=== PATIENT | female | born 1985 | race Caucasian/White ===

== ENCOUNTER 2016-10-27 11:40 | Emergency (ER) | payer OTHER ==
[~2016-10-27] VITALS: Ht 180.3 cm; Wt 98.0 kg
[2016-10-27 12:22] LABS: HEMATOCRIT 41.6 % (37.0-47.0); HEMOGLOBIN 14.3 g/dl (12.0-16.0); IMMATURE GRANULOCYTES 0.2 % (0.0-1.0); MEAN CELL VOLUME 89.3 fL CALC (80.0-100.0); MEAN CORPUSCULAR HGB 30.7 pG CALC (26.0-32.0); MEAN CORPUSCULAR HGB CONC 34.4 g/L CALC (32.0-36.0); NEUT# 4.14 thou/uL (2.00-7.15); RED BLOOD COUNT 4.66 mill/uL (4.20-5.60); RED CELL DISTRI WIDTH 12.2 % (11.5-15.5); URINE BILIRUBIN - DIPSTICK NEGATIVE (NEGATIVE); URINE BLOOD DIPSTICK MODERATE (NEGATIVE); URINE CLARITY CLEAR; URINE COLOR YELLOW; URINE GLUCOSE - DIPSTICK NEGATIVE (NEGATIVE); URINE KETONE NEGATIVE (NEGATIVE); URINE LEUK ESTERASE NEGATIVE (NEGATIVE); URINE NITRITE - DIPSTICK NEGATIVE (Negative); URINE PROTEIN - DIPSTICK NEGATIVE (NEG-TRACE); URINE UROBILINOGEN - DIPSTICK 0.2 E.U./dL (0.2)
[2016-10-27 12:26] LABS: URINE SQUAMOUS EPITHELIAL CELL FEW EPI/hpf (0-FEW)
[2016-10-27 12:28] LABS: BARBITURATES NEGATIVE (NEGATIVE); COCAINE NEGATIVE (NEGATIVE); METHADONE NEGATIVE (NEGATIVE); OXCYCODONE POSITIVE (NEGATIVE); TETRAHYDROCANNABIONOL POSITIVE (NEGATIVE); TRICYLIC ANTIDEPRESSANTS NEGATIVE (NEGATIVE)
[2016-10-27 12:35] LABS: ALBUMIN 4.6 g/dL (3.2-5.0); ALKALINE PHOSPHATASE 60 u/l (38-126); ANION GAP 15 (6-22 (CALC)); BILIRUBIN, TOTAL 0.5 mg/dL (0.0-1.4); BUN 8 mg/dL (7-17); BUN/CREATININE RATIO 12 (12-20 (CALC)); CALCIUM 9.4 mg/dL (8.4-10.2); CARBON DIOXIDE 25 mmol/l (22-30); CHLORIDE 106 mmol/l (95-108); CREATININE 0.6 mg/dL (0.5-1.0); GFR > 60 ML/MIN (>=60 (CALC)); GFR FOR AFR.AMER. > 60 ML/MIN (>=60 (CALC)); GLUCOSE 95 mg/dL (65-105); POTASSIUM 4.2 mmol/l (3.5-5.1); SGOT/AST 41 u/l (14-36); SGPT/ALT 51 u/l (9-52); SODIUM 141 mmol/l (137-146); TOTAL PROTEIN 8.1 g/dL (6.3-8.2)
[2016-10-27] MEDS ORDERED: TRAMADOL HCL50 MG PO (12:42)
[2016-10-27] MEDS ORDERED: PERCOCET 5/325M1 TAB PO (12:43)
[2016-10-27 12:47] LABS: MYOGLOBIN 24 ng/mL (0 - 62)
[2016-10-27 15:12] VITALS: BP 119/79
== END 2016-10-27 15:37 | disposition home or self-care (01) | DRG 103 ==
LOC: ED 11:40
PROVIDERS: Emergency Medicine
DX: G43.909 Migraine, unspecified, not intractable, without status migrainosus (principal); M25.512 Pain in left shoulder
CPT/HCPCS: J2060

== ENCOUNTER 2017-05-12 14:31 | Emergency (ER) | payer SELFPAY ==
[~2017-05-12] VITALS: Ht 180.3 cm; Wt 98.6 kg
[~2017-05-12 14:31] MED LIST: PERCOCET 5/325M1 TAB PO; TRAMADOL HCL50 MG PO
[2017-05-12 15:08] LABS: HEMATOCRIT 41.2 % (37.0-47.0); IMMATURE GRANULOCYTES 0.3 % (0.0-1.0); MEAN CELL VOLUME 89.8 fL CALC (80.0-100.0); MEAN CORPUSCULAR HGB 30.5 pG CALC (26.0-32.0); NEUT# 11.81 thou/uL (2.00-7.15); RED BLOOD COUNT 4.59 mill/uL (4.20-5.60); RED CELL DISTRI WIDTH 12.1 % (11.5-15.5)
[2017-05-12 15:49] LABS: ANION GAP 17 (6-22 (CALC)); BUN 10 mg/dL (7-17); BUN/CREATININE RATIO 13 (12-20 (CALC)); CARBON DIOXIDE 21 mmol/l (22-30); CHLORIDE 109 mmol/l (95-108); CREATININE 0.7 mg/dL (0.5-1.0); GFR > 60 ML/MIN (>=60 (CALC)); GFR FOR AFR.AMER. > 60 ML/MIN (>=60 (CALC)); SODIUM 142 mmol/l (137-146)
[2017-05-12 18:06] LABS: INFLUENZA A NONE DETECTED (NONE DETECT); INFLUENZA B NONE DETECTED (NONE DETECT)
[2017-05-12 18:45] VITALS: BP 108/67
== END 2017-05-12 18:45 | disposition short-term general hospital (02) | DRG 312 ==
LOC: ED 14:31
PROVIDERS: Family Medicine
DX: R55 Syncope and collapse (principal); G93.89 Other specified disorders of brain; F31.9 Bipolar disorder, unspecified

== ENCOUNTER 2021-10-18 11:45 | Emergency (ER) | payer OTHER ==
[~2021-10-18] VITALS: Ht 180.3 cm; Wt 92.0 kg
[2021-10-18] MEDS ORDERED: PHENERGAN25 MG RE (15:58)
[2021-10-18 16:53] VITALS: BP 165/93
== END 2021-10-18 16:55 | disposition home or self-care (01) ==
LOC: ED 11:45
DX: G43.909 Migraine, unspecified, not intractable, without status migrainosus (principal); F31.9 Bipolar disorder, unspecified; U07.1 COVID-19

== ENCOUNTER 2021-11-16 12:58 | Emergency (ER) | payer OTHER ==
[2021-11-16] VITALS (20 sets, daily range): BP systolic 118–155; BP diastolic 68–104
[~2021-11-16] VITALS: Ht 180.3 cm; Wt 100.6 kg
[~2021-11-16 12:58] MED LIST changes: +PHENERGAN25 MG RE
[2021-11-16 13:42] LABS: HEMATOCRIT 41.9 % (37.0-47.0); HEMOGLOBIN 14.4 g/dl (12.0-16.0); IMMATURE GRANULOCYTES 0.2 % (0.0-5.0); MEAN CELL VOLUME 92.7 fL CALC (80.0-100.0); MEAN CORPUSCULAR HGB 31.9 pG CALC (26.0-32.0); MEAN CORPUSCULAR HGB CONC 34.4 g/dL CAL (32.0-36.0); NEUT# 12.94 thou/uL (2.00-7.15); RED BLOOD COUNT 4.52 mill/uL (4.20-5.60); RED CELL DISTRI WIDTH 12.1 % (11.5-15.5)
[2021-11-16 14:06] LABS: ALBUMIN 4.6 g/dL (3.2-5.0); ALKALINE PHOSPHATASE 80 u/l (38-126); ANION GAP 16 (6-22 (CALC)); BILIRUBIN, TOTAL 0.4 mg/dL (0.0-1.4); BUN 11 mg/dL (7-17); BUN/CREATININE RATIO 16 (12-20 (CALC)); CARBON DIOXIDE 24 mmol/l (22-30); CHLORIDE 104 mmol/l (95-108); CREATININE 0.7 mg/dL (0.5-1.0); GFR FOR AFR.AMER. > 60 ML/MIN (>=60 (CALC)); GFR OTHER RACES > 60 ML/MIN (>=60 (CALC)); POTASSIUM 4.4 mmol/l (3.5-5.1); SGOT/AST 20 u/l (14-36); SODIUM 139 mmol/l (137-146); TOTAL PROTEIN 7.9 g/dL (6.3-8.2)
[2021-11-16 14:21] LABS: PROTHROMBIN TIME 9.5 SECONDS (9.0-12.5)
[2021-11-16] MEDS ORDERED: PERCOCET1 TA4 PO (17:43)
== END 2021-11-16 18:30 | disposition left against medical advice (07) ==
LOC: ED 12:58
PROVIDERS: Family Medicine
DX: R47.01 Aphasia (principal); R53.1 Weakness; R20.0 Anesthesia of skin; G43.909 Migraine, unspecified, not intractable, without status migrainosus; F31.9 Bipolar disorder, unspecified; Z91.19 Patient's noncompliance with other medical treatment and regimen; Z20.822 Contact with and (suspected) exposure to COVID-19; Z01.818 Encounter for other preprocedural examination; Z11.59 Encounter for screening for other viral diseases

== ENCOUNTER 2021-12-15 11:58 | Emergency (ER) | payer OTHER ==
[~2021-12-15] VITALS: Ht 180.3 cm; Wt 97.3 kg
[2021-12-15] VITALS (15 sets, daily range): BP systolic 111–144; BP diastolic 69–103
[~2021-12-15 11:58] MED LIST changes: +PERCOCET1 TA4 PO
[2021-12-15] MEDS ORDERED: XANAX0.5 MG PO (12:32)
[2021-12-15] MEDS ORDERED: PROZAC20 MG PO (12:34)
== END 2021-12-15 16:57 | disposition home or self-care (01) ==
LOC: ED 11:58
DX: G43.909 Migraine, unspecified, not intractable, without status migrainosus (principal); F31.9 Bipolar disorder, unspecified; F41.9 Anxiety disorder, unspecified

== ENCOUNTER 2022-04-27 11:02 | Emergency (ER) | payer OTHER ==
[~2022-04-27] VITALS: Ht 180.3 cm; Wt 94.0 kg
[~2022-04-27 11:02] MED LIST changes: +PROZAC20 MG PO; +XANAX0.5 MG PO
[2022-04-27] MEDS ORDERED: KETOROLAC IM (11:24)
[2022-04-27] MEDS ORDERED: ACYCLOVIR400 MG PO (11:26)
[2022-04-27] MEDS ORDERED: QULIPTA60 MG PO (11:27)
[2022-04-27 11:48] LABS: BASO% 0.3 % (0-3); EOS% 1.3 % (0-8); HEMATOCRIT 39.8 % (37.0-47.0); HEMOGLOBIN 13.9 g/dl (12.0-16.0); IMMATURE GRANULOCYTES 0.1 % (0.0-5.0); LYMPH% 19.4 % (15-41); MEAN CELL VOLUME 92.3 fL CALC (80.0-100.0); MEAN CORPUSCULAR HGB 32.3 pG CALC (26.0-32.0); MEAN CORPUSCULAR HGB CONC 34.9 g/dL CAL (32.0-36.0); MONO% 5.9 % (2-13); NEUT# 8.12 thou/uL (2.00-7.15); RED BLOOD COUNT 4.31 mill/uL (4.20-5.60); RED CELL DISTRI WIDTH 11.9 % (11.5-15.5)
[2022-04-27 11:58] LABS: ALBUMIN 4.6 g/dL (3.2-5.0); ALKALINE PHOSPHATASE 92 u/l (38-126); BILIRUBIN, TOTAL 0.4 mg/dL (0.0-1.4); BUN 5 mg/dL (7-17); BUN/CREATININE RATIO 6 (12-20 (CALC)); CARBON DIOXIDE 22 mmol/l (22-30); CHLORIDE 106 mmol/l (95-108); CPK 84 u/l (30-165); CREATININE 0.7 mg/dL (0.5-1.0); GFR FOR AFR.AMER. > 60 ML/MIN (>=60 (CALC)); GFR OTHER RACES > 60 ML/MIN (>=60 (CALC)); LIPASE 35 u/l (23-300); SGOT/AST 25 u/l (14-36); SODIUM 137 mmol/l (137-146); TOTAL PROTEIN 8.2 g/dL (6.3-8.2)
[2022-04-27 12:00] LABS: ANION GAP 13 (6-22 (CALC)); POTASSIUM 3.9 mmol/l (3.5-5.1)
[2022-04-27 15:09] LABS: URINE BILIRUBIN - DIPSTICK NEGATIVE (NEGATIVE); URINE BLOOD DIPSTICK NEGATIVE (NEGATIVE); URINE COLOR YELLOW; URINE GLUCOSE - DIPSTICK NEGATIVE (NEGATIVE); URINE KETONE NEGATIVE (NEGATIVE); URINE LEUK ESTERASE NEGATIVE (NEGATIVE); URINE PROTEIN - DIPSTICK NEGATIVE (NEG-TRACE); URINE SPECIFIC GRAVITY 1.025; URINE UROBILINOGEN - DIPSTICK 0.2 E.U./dL (0.2)
[2022-04-27 15:10] LABS: URINE NITRITE - DIPSTICK NEGATIVE (Negative)
[2022-04-27 18:07] VITALS: BP 133/96
== END 2022-04-27 19:55 | disposition home or self-care (01) ==
LOC: ED 11:02
PROVIDERS: Internal Medicine
DX: G43.909 Migraine, unspecified, not intractable, without status migrainosus (principal); F31.9 Bipolar disorder, unspecified; F41.9 Anxiety disorder, unspecified
CPT/HCPCS: J1100; J2060

== ENCOUNTER 2022-05-25 10:11 | Emergency (ER) | payer OTHER ==
[~2022-05-25] VITALS: Ht 180.3 cm; Wt 92.1 kg
[2022-05-25] VITALS (12 sets, daily range): BP systolic 98–132; BP diastolic 64–96
[~2022-05-25 10:11] MED LIST changes: +ACYCLOVIR400 MG PO; +KETOROLAC IM; +QULIPTA60 MG PO
[2022-05-25] MEDS ORDERED: TIZANIDINE HCL4 M1 PO (10:43)
[2022-05-25 10:47] LABS: BASO% 0.3 % (0-3); HEMATOCRIT 44.2 % (37.0-47.0); HEMOGLOBIN 14.5 g/dl (12.0-16.0); IMMATURE GRANULOCYTES 0.2 % (0.0-5.0); LYMPH% 23.1 % (15-41); MEAN CELL VOLUME 92.9 fL CALC (80.0-100.0); MEAN CORPUSCULAR HGB 30.5 pG CALC (26.0-32.0); MEAN CORPUSCULAR HGB CONC 32.8 g/dL CAL (32.0-36.0); MONO% 6.5 % (2-13); NEUT# 6.56 thou/uL (2.00-7.15); NEUT% 67.9 % (42-76); RED BLOOD COUNT 4.76 mill/uL (4.20-5.60); RED CELL DISTRI WIDTH 11.7 % (11.5-15.5)
[2022-05-25 11:02] LABS: ALBUMIN 4.9 g/dL (3.2-5.0); ALKALINE PHOSPHATASE 82 u/l (38-126); ANION GAP 15 (6-22 (CALC)); BILIRUBIN, TOTAL 0.4 mg/dL (0.02-1.3); BUN 13 mg/dL (7-17); BUN/CREATININE RATIO 19 (12-20 (CALC)); CARBON DIOXIDE 24 mmol/l (22-30); CHLORIDE 105 mmol/l (95-108); CREATININE 0.7 mg/dL (0.5-1.0); GFR FOR AFR.AMER. > 60 ML/MIN (>=60 (CALC)); GFR OTHER RACES > 60 ML/MIN (>=60 (CALC)); POTASSIUM 3.8 mmol/l (3.5-5.1); SGOT/AST 28 u/l (14-36); SODIUM 139 mmol/l (137-146)
== END 2022-05-25 19:24 | disposition home or self-care (01) ==
LOC: ED 10:11
PROVIDERS: Family Medicine
DX: R20.2 Paresthesia of skin (principal); R53.1 Weakness; F31.9 Bipolar disorder, unspecified; F41.9 Anxiety disorder, unspecified; F17.200 Nicotine dependence, unspecified, uncomplicated; R32 Unspecified urinary incontinence
CPT/HCPCS: A9579